=== PATIENT | female | born 1935 | race Caucasian/White ===

== ENCOUNTER 2018-10-29 10:19 | Emergency (ER) | payer OTHER ==
[~2018-10-29] VITALS: Ht 170.2 cm; Wt 90.7 kg
[2018-10-29] MEDS ORDERED: KETOROLAC TROMETHAMINE 30 MG/ML VIAL IV NR (11:00)
[2018-10-29] MEDS ORDERED: CYCLOBENZAPRINE HCL 10 MG TAB PO NR (11:00)
[2018-10-29] MEDS ORDERED: KETOROLAC TROMETHAMINE 30 MG/ML VIAL IM NR (11:30)
--- NOTE | 2018-10-29 12:14 | Diagnostic Imaging Report ---
Exam: Left shoulder (2 views) and humerus (3 views) series dated 10/29/2018 History: Pain Comparison: None available Findings: There is no fracture or dislocation. Calcification superior to the humeral head represents calcific tendinosis involving the rotator cuff. Mild degenerative spurring of the medial aspect of the humeral head. 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 Signed by: Dr. Davey Cheney DO on 10/29/2018 12:11 PM
[2018-10-29 13:14] VITALS: BP 138/60
== END 2018-10-29 13:33 | disposition home or self-care (01) ==
LOC: ER 10:19
DX: M75.32 Calcific tendinitis of left shoulder (principal); I10 Essential (primary) hypertension; M19.90 Unspecified osteoarthritis, unspecified site
CPT/HCPCS: 73030; 73060; 93005; 99284; J1885

== ENCOUNTER 2021-08-08 12:39 | Emergency (ER) | payer MEDICARE, OTHER ==
[~2021-08-08] VITALS: Ht 170.2 cm; Wt 90.7 kg
[2021-08-08 13:08] LABS: BASOPHILS % 0.5 % (0.0-1.0); EOSINOPHILS # (AUTO) 0.2 (0.0-0.4); EOSINOPHILS % 1.7 % (0.0-6.0); HEMATOCRIT 38.3 % (34.2-44.1); HEMOGLOBIN 12.3 g/dL (12.0-16.0); LYMPHOCYTES # (AUTO) 2.6 (1.0-3.2); MEAN CORPUSCULAR HEMOGLOBIN 28.4 pg (28-32); MEAN CORPUSCULAR HGB CONC 32.1 g/dL (31-35); MEAN CORPUSCULAR VOLUME 88.5 fL (81-99); MONOCYTES # (AUTO) 0.8 (0.2-0.8); MONOCYTES % 9.2 % (4.4-11.3); NEUTROPHILS # (AUTO) 5.1 (2.1-6.9); NEUTROPHILS % 58.3 % (38.7-80.0); PLATELET COUNT 149 x10e3/uL (140-360); RED BLOOD COUNT 4.33 x10e6/uL (3.6-5.1)
[2021-08-08 13:26] LABS: ALBUMIN 4.3 g/dL (3.5-5.0); ALBUMIN/GLOBULIN RATIO 1.4 (0.8-2.0); ANION GAP 16.3 mmol/L (8-16); CALCIUM 10.1 mg/dL (8.4-10.2); CREATININE, SERUM 1.74 mg/dL (0.57-1.11); POTASSIUM 3.3 mmol/L (3.5-5.1)
[2021-08-08 13:41] LABS: CLARITY,URINE CLEAR (CLEAR); COLOR,URINE YELLOW (YELLOW); KETONES,URINE NEGATIVE (NEGATIVE); LEUKOCYTE ESTERASE ,URINE NEGATIVE (NEGATIVE); NITRITE,URINE NEGATIVE (NEGATIVE); PROTEIN,URINE DIPSTICK NEGATIVE (NEGATIVE); URINE UROBILINOGEN 0.2 mg/dL (0.2 - 1)
[2021-08-08 13:42] LABS: BACTERIA,URINE RARE /HPF; EPITHELIAL CELLS,URINE RARE /LPF; RBC,URINE 0-5 /HPF (0-5); WBC,URINE (MAN) 0-5 /HPF (0-5)
== END 2021-08-08 15:57 | disposition home or self-care (01) ==
LOC: ER 12:51
DX: R10.31 Right lower quadrant pain (principal); N28.9 Disorder of kidney and ureter, unspecified; I10 Essential (primary) hypertension; E78.5 Hyperlipidemia, unspecified; E03.9 Hypothyroidism, unspecified; Z85.89 Personal history of malignant neoplasm of other organs and systems
CPT/HCPCS: 36415; 74176; 80053; 81001; 83690; 85025; 99283

== ENCOUNTER 2021-11-27 08:26 | Emergency (ER) | payer MEDICARE ==
[~2021-11-27] VITALS: Ht 170.2 cm; Wt 90.7 kg
[2021-11-27 08:56] LABS: BASOPHILS % 0.3 % (0.0-1.0); EOSINOPHILS % 0.3 % (0.0-6.0); HEMATOCRIT 35.6 % (34.2-44.1); HEMOGLOBIN 11.4 g/dL (12.0-16.0); LYMPHOCYTES # (AUTO) 1.2 (1.0-3.2); LYMPHOCYTES % 14.4 % (18.0-39.1); MEAN CORPUSCULAR HEMOGLOBIN 29.2 pg (28-32); MONOCYTES # (AUTO) 0.4 (0.2-0.8); MONOCYTES % 4.5 % (4.4-11.3); NEUTROPHILS # (AUTO) 6.9 (2.1-6.9); NEUTROPHILS % 80.3 % (38.7-80.0); PLATELET COUNT 150 x10e3/uL (140-360); RED BLOOD COUNT 3.91 x10e6/uL (3.6-5.1); RED CELL DISTRIBUTION WIDTH 13.2 % (11.7-14.4)
[2021-11-27 09:21] LABS: AMPHETAMINES SCREEN,URINE NEGATIVE (NEGATIVE); BENZODIAZEPINES SCREEN,URINE POSITIVE (NEGATIVE); CLARITY,URINE CLEAR (CLEAR); COLOR,URINE YELLOW (YELLOW); KETONES,URINE 1+ (NEGATIVE); LEUKOCYTE ESTERASE ,URINE NEGATIVE (NEGATIVE); NITRITE,URINE NEGATIVE (NEGATIVE); PHENCYCLIDINE SCREEN,URINE NEGATIVE (NEGATIVE); PROTEIN,URINE DIPSTICK >=300 (NEGATIVE)
[2021-11-27 09:22] LABS: ALBUMIN 4.1 g/dL (3.5-5.0); ALBUMIN/GLOBULIN RATIO 1.2 (0.8-2.0); ANION GAP 16.2 mmol/L (8-16); CALCIUM 10.5 mg/dL (8.4-10.2); CREATININE, SERUM 1.77 mg/dL (0.57-1.11); POTASSIUM 3.2 mmol/L (3.5-5.1)
[2021-11-27 09:22] LABS: URINE UROBILINOGEN 1 mg/dL (0.2 - 1)
[2021-11-27] MEDS ORDERED: SODIUM CHLORIDE 0.9% 500ML 500 ML IV ONE (09:30)
[2021-11-27 09:42] LABS: CREATINE KINASE MB 3.9 ng/mL (0-5.0)
[2021-11-27 10:00] LABS: BACTERIA,URINE FEW /HPF; EPITHELIAL CELLS,URINE FEW /LPF
[2021-11-27] MEDS ORDERED: POTASSIUM CHLORIDE 20 MEQ TAB CR PO STA (11:45)
[2021-11-27 16:58] LABS: PROTHROMBIN TIME 10.5 seconds (11.9-14.5)
[2021-11-27 17:26] LABS: INR 0.94
== END 2021-11-27 13:10 | disposition home or self-care (01) ==
LOC: ER 08:34
DX: R41.0 Disorientation, unspecified (principal); N39.0 Urinary tract infection, site not specified; I10 Essential (primary) hypertension; E78.5 Hyperlipidemia, unspecified; E03.9 Hypothyroidism, unspecified; Z20.822 Contact with and (suspected) exposure to COVID-19; Z85.528 Personal history of other malignant neoplasm of kidney
CPT/HCPCS: 36415; 70450; 71045; 80053; 80307; 81001; 82550; 82553; 83605; 83735; 84484; 85025; 85610; 85730; 87040; 87086; 93005; 99284; J7040; U0002

== ENCOUNTER 2021-12-04 07:36 | Emergency (ER) | payer MEDICARE ==
[~2021-12-04] VITALS: Ht 170.2 cm; Wt 90.7 kg
[2021-12-04 09:01] LABS: BASOPHILS % 0.3 % (0.0-1.0); EOSINOPHILS # (AUTO) 0.1 (0.0-0.4); EOSINOPHILS % 1.5 % (0.0-6.0); HEMATOCRIT 32.1 % (34.2-44.1); HEMOGLOBIN 10.6 g/dL (12.0-16.0); LYMPHOCYTES # (AUTO) 1.4 (1.0-3.2); LYMPHOCYTES % 22.4 % (18.0-39.1); MEAN CORPUSCULAR HEMOGLOBIN 29.8 pg (28-32); MEAN CORPUSCULAR VOLUME 90.2 fL (81-99); MONOCYTES # (AUTO) 0.5 (0.2-0.8); MONOCYTES % 7.6 % (4.4-11.3); NEUTROPHILS # (AUTO) 4.1 (2.1-6.9); NEUTROPHILS % 67.7 % (38.7-80.0); PLATELET COUNT 207 x10e3/uL (140-360); RED BLOOD COUNT 3.56 x10e6/uL (3.6-5.1); RED CELL DISTRIBUTION WIDTH 13.2 % (11.7-14.4)
[2021-12-04 09:18] LABS: CLARITY,URINE CLEAR (CLEAR); COLOR,URINE YELLOW (YELLOW)
[2021-12-04 09:19] LABS: KETONES,URINE NEGATIVE (NEGATIVE); LEUKOCYTE ESTERASE ,URINE NEGATIVE (NEGATIVE); NITRITE,URINE NEGATIVE (NEGATIVE); PROTEIN,URINE DIPSTICK NEGATIVE (NEGATIVE); URINE UROBILINOGEN 0.2 mg/dL (0.2 - 1)
[2021-12-04 09:21] LABS: ALBUMIN 3.9 g/dL (3.5-5.0); ALBUMIN/GLOBULIN RATIO 1.3 (0.8-2.0); ANION GAP 15.8 mmol/L (8-16); CREATININE, SERUM 1.78 mg/dL (0.57-1.11); POTASSIUM 3.8 mmol/L (3.5-5.1)
[2021-12-04 09:24] LABS: BACTERIA,URINE FEW /HPF; EPITHELIAL CELLS,URINE FEW /LPF; WBC,URINE (MAN) 0-5 /HPF (0-5)
== END 2021-12-04 10:56 | disposition home or self-care (01) ==
LOC: ER 08:08
DX: R06.02 Shortness of breath (principal); K44.9 Diaphragmatic hernia without obstruction or gangrene; R53.1 Weakness; I10 Essential (primary) hypertension; E78.5 Hyperlipidemia, unspecified; E03.9 Hypothyroidism, unspecified; Z85.528 Personal history of other malignant neoplasm of kidney
CPT/HCPCS: 36415; 71045; 80053; 81001; 83880; 84484; 85025; 87086; 93005; 99284

== ENCOUNTER 2024-11-19 06:39 | Emergency (ER) | payer MEDICARE ==
[~2024-11-19] VITALS: Ht 170.2 cm; Wt 90.7 kg
[2024-11-19 07:06] VITALS: TEMP 98
[2024-11-19] MEDS: HYDROCODONE/APAP 5MG-325MG TAB PO ONE (07:19)
[2024-11-19] MEDS ORDERED: BUPIVACAINE HCL 0.25% 10ML MPF VIAL INJ ONE (07:58)
[2024-11-19 08:00] VITALS: PULSE 82; RESP 18
[2024-11-19] MEDS: BENZOCAINE 20% SPR 60 ML CAN MT ONE (08:09)
[2024-11-19] MEDS: BUPIVACAINE 0.25% 30ML SDV INJ ONE (08:28)
[2024-11-19] MEDS ORDERED: NAPROXEN250 MG PO (08:46)
[2024-11-19] MEDS ORDERED: HYDROCODON-ACE1 EA11 PO (08:46)
[2024-11-19 09:00] VITALS: BP 170/138; PULSE 83; RESP 18; O2SAT 99
== END 2024-11-19 09:18 | disposition home or self-care (01) ==
LOC: ER 06:50
DX: M25.532 Pain in left wrist (principal); S52.592A Other fractures of lower end of left radius, initial encounter for closed fracture; W18.39XA Other fall on same level, initial encounter; Y93.01 Activity, walking, marching and hiking; Y92.89 Other specified places as the place of occurrence of the external cause; I10 Essential (primary) hypertension; E78.5 Hyperlipidemia, unspecified; Z85.528 Personal history of other malignant neoplasm of kidney
CPT/HCPCS: 99284